=== PATIENT | female | born 1975 | race Two or more races ===

== ENCOUNTER 2020-02-23 01:09 | Emergency (ER) | payer MEDICAID ==
[~2020-02-23] VITALS: Ht 157.5 cm; Wt 67.8 kg
[2020-02-23 01:15] VITALS: BP 177/109
[2020-02-23] MEDS ORDERED: AZIT250T PO (01:40)
[2020-02-23] MEDS ORDERED: TRAM-48 PO (01:40)
--- NOTE | 2020-02-23 01:40 | PHYS DOC ---
Past Medical History Past Medical History: No Pertinent History Past Surgical History: Smoking Status: Current Every Day Smoker Alcohol Use: Rarely Social History Narrative: PT STATES, "I'M 9 MONTHS SOBER" General Adult EDM: Chief Complaint: HEADACHE HPI: HPI: Patient is a 45 year old female presents with a chief complaint of occipital frontal headache associated with congestion bilateral earache. Patient states symptoms been ongoing for the last 3 days on and off. Patient states for her pain she takes Tylenol with improvement but it returns later on. Patient denies any fever or chills chest pain shortness of breath or cough. Review of Systems: Review of Systems: Constitutional: Denies fever or chills. [] Eyes: Denies change in visual acuity. [] HENT: Positive nasal congestion or sore throat. [Positive earache] Respiratory: Denies cough or shortness of breath. [] Cardiovascular: Denies chest pain or edema. [] GI: Denies abdominal pain, nausea, vomiting, bloody stools or diarrhea. [] : Denies dysuria. [] Musculoskeletal: Denies back pain or joint pain. [] Integument: Denies rash. [] Neurologic: Denies headache, focal weakness or sensory changes. [] Endocrine: Denies polyuria or polydipsia. [] Lymphatic: Denies swollen glands. [] Psychiatric: Denies depression or anxiety. [] Heart Score: Risk Factors: Risk Factors: DM, Current or recent (<one month) smoker, HTN, HLP, family history of CAD, obesity. Risk Scores: Score 0 - 3: 2.5% MACE over next 6 weeks - Discharge Home Score 4 - 6: 20.3% MACE over next 6 weeks - Admit for Clinical Observation Score 7 - 10: 72.7% MACE over next 6 weeks - Early Invasive Strategies Allergies: Allergies: Allergies Coded Allergies Type Severity Reaction Last Updated Verified No Known Drug Allergies 02/23/20 No Physical Exam: PE: Constitutional: Well developed, well nourished, no acute distress, non-toxic appearance. [] HENT: Normocephalic, atraumatic, bilateral external ears normal, oropharynx moist, no oral exudates, nose normal. [Pharyngeal erythema postnasal drip TM fullness bilateral] Eyes: PERRLA, EOMI, conjunctiva normal, no discharge. [] Neck: Normal range of motion, no tenderness, supple, no stridor. [] Cardiovascular:Heart rate regular rhythm, no murmur [] Lungs & Thorax: Bilateral breath sounds clear to auscultation [] Abdomen: Bowel sounds normal, soft, no tenderness, no masses, no pulsatile masses. [] Skin: Warm, dry, no erythema, no rash. [] Back: No tenderness, no CVA tenderness. [] Extremities: No tenderness, no cyanosis, no clubbing, ROM intact, no edema. [] Neurologic: Alert and oriented X 3, normal motor function, normal sensory function, no focal deficits noted. [] Psychologic: Affect normal, judgement normal, mood normal. [] Current Patient Data: Vital Signs: Vital Signs Date Time Temp Pulse Resp B/P (MAP) Pulse Ox O2 Delivery O2 Flow Rate FiO2 02/23/20 01:15 98.3 77 16 177/109 (131) 99 Room Air 98.3 EKG: EKG: [] Radiology/Procedures: Radiology/Procedures: [] Course & Med Decision Making: Course & Med Decision Making Pertinent Labs and Imaging studies reviewed. (See chart for details) [] Dragon Disclaimer: [employer] Disclaimer: This electronic medical record was generated, in whole or in part, using a voice recognition dictation system. Departure Departure Impression: Primary Impression: Sinusitis Additional Impression: Otalgia Disposition: 01 DC HOME SELF CARE/HOMELESS Condition: STABLE Referrals: ADRIEL NETTLES MD (PCP) Patient Instructions: Otalgia, Sinus Headache Scripts Tramadol Hcl (ULTRAM) 50 Mg Tablet 50 MG PO Q4HRS PRN for PAIN for 7 Days, #14 TAB 0 Refills Prov: MELVA DAWN I DO 02/23/20 Azithromycin (ZITHROMAX) 250 Mg Tablet 1 PKG PO UD, #6 TAB Prov: MELVA DAWN I DO 02/23/20 MELVA DAWN DO Feb 23, 2020 01:40
== END 2020-02-23 01:45 | disposition home or self-care (01) ==
LOC: ER 01:09
DX: J32.9 Chronic sinusitis, unspecified (principal); H92.03 Otalgia, bilateral; R09.81 Nasal congestion; R51.9 Headache, unspecified; F17.200 Nicotine dependence, unspecified, uncomplicated; Z98.890 Other specified postprocedural states
CPT/HCPCS: 99283

== ENCOUNTER 2020-09-13 19:50 | Emergency (ER) | payer MEDICAID ==
[~2020-09-13] VITALS: Ht 157.5 cm; Wt 68.2 kg
[~2020-09-13 19:50] MED LIST: AZIT250T PO; TRAM-48 PO
[2020-09-13 20:07] VITALS: BP 141/83
[2020-09-13] MEDS ORDERED: CLIN150C15 PO (21:03)
[2020-09-13] MEDS ORDERED: CHLO15MO2 SWSP (21:03)
[2020-09-13] MEDS ORDERED: NAPR-514 PO (21:03)
--- NOTE | 2020-09-13 21:04 | ED.ADGEN ---
Past Medical History Past Medical History: No Pertinent History Past Surgical History: No Surgical History Smoking Status: Current Every Day Smoker Alcohol Use: None General Adult EDM: Chief Complaint: DENTAL PROBLEM HPI: HPI: Patient is a 45 year old female who presents emergency department with complaints of front lower tooth pain since last night. Patient reports a history of dental caries. She states she has an appointment with a dentist next week. She denies any fever, cough, body aches, fatigue, nausea, vomiting, diarrhea, neck pain, difficulty swallowing, or ear pain. She currently rates her pain 10 out of 10 on the pain scale, she denies any alleviating factors, pain is worse with palpation of the area. She denies any pus drainage from the teeth. Review of Systems: Review of Systems: Complete ROS is negative unless otherwise noted in HPI. Allergies: Allergies: Allergies Coded Allergies Type Severity Reaction Last Updated Verified No Known Drug Allergies 02/23/20 No Physical Exam: PE: See Above Constitutional: Well developed, well nourished, no acute distress, non-toxic appearance. [] HENT: Normocephalic, atraumatic, bilateral external ears normal, nose normal; diffuse dental decay with gingival edema and erythema, no visible or palpable dental abscess, multiple broken teeth in the front lower jaw, no trismus [] Eyes: PERRLA, EOMI, conjunctiva normal, no discharge. [] Neck: Normal range of motion, no stridor. [] Cardiovascular:Heart rate regular rhythm Lungs & Thorax: Respirations even and unlabored, no retractions, no respiratory distress Skin: Warm, dry, no erythema, no rash. [] Extremities: No cyanosis, ROM intact, no edema. [] Neurologic: Alert and oriented X 3, no focal deficits noted. [] Psychologic: Affect normal, judgement normal, mood normal. [] Current Patient Data: Vital Signs: Vital Signs Date Time Temp Pulse Resp B/P (MAP) Pulse Ox O2 Delivery O2 Flow Rate FiO2 09/13/20 20:07 98.0 70 16 141/83 (102) 97 Room Air 98.0 EKG: EKG: [] Heart Score: C/O Chest Pain: No Risk Scores: Score 0 - 3: 2.5% MACE over next 6 weeks - Discharge Home Score 4 - 6: 20.3% MACE over next 6 weeks - Admit for Clinical Observation Score 7 - 10: 72.7% MACE over next 6 weeks - Early Invasive Strategies Radiology/Procedures: Radiology/Procedures: [] Course & Med Decision Making: Course & Med Decision Making Pertinent Labs and Imaging studies reviewed. (See chart for details) []Did no personally evaluate the patient. Treatment and care plan was independently made by DANIEL. I was available for consult. Luis Disclaimer: Luis Disclaimer: This electronic medical record was generated, in whole or in part, using a voice recognition dictation system. Departure Departure Impression: Primary Impression: Pain, dental Additional Impressions: Infected dental caries Gingivitis Disposition: HOME / SELF CARE / HOMELESS Condition: STABLE Referrals: ADRIEL NETTLES MD (PCP) Patient Instructions: Dental Caries, Gingivitis, [id number] Additional Instructions: Fill prescription(s) and use as directed. Follow-up with your dentist next week as planned, return to the ER if symptoms worsen or fever develops.. Scripts Chlorhexidine Gluconate (PERIDEX) 15 Ml Mouthwash 15 ML SWSP BID for 10 Days, #1 BOT 0 Refills [place] your teeth before use of this medication and rinse thoroughly after using the medication as it may stain your teeth. Prov: GUS MOSLEY PROCUREMENT MANAGER 09/13/20 Naproxen (NAPROXEN) 500 Mg Tablet 1 TAB PO BID PRN for PAIN for 10 Days, #20 TAB 0 Refills Prov: GUS MOSLEY APRN 09/13/20 Clindamycin Hcl (CLINDAMYCIN HCL) 150 Mg Capsule 450 MG PO TID for 7 Days, #63 CAP 0 Refills Prov: GUS MOSLEY APRN 09/13/20 Problem Qualifiers GUS MOSLEY APRN September 13, 2020 21:03 MELVA DAWN I DO September 15, 2020 18:12
== END 2020-09-13 21:25 | disposition home or self-care (01) ==
LOC: ER 19:50
DX: K02.9 Dental caries, unspecified (principal); K05.10 Chronic gingivitis, plaque induced; F17.200 Nicotine dependence, unspecified, uncomplicated
CPT/HCPCS: 99283

== ENCOUNTER 2021-09-03 16:17 | Emergency (ER) | payer MEDICAID ==
[~2021-09-03] VITALS: Ht 157.5 cm; Wt 67.8 kg
[~2021-09-03 16:17] MED LIST changes: +CHLO15MO2 SWSP; +CLIN150C16 PO; +NAPR-514 PO
[2021-09-03 16:20] VITALS: BP 160/81
[2021-09-03 18:10] LABS: BACTERIA,URINE FEW /HPF (0-FEW); WBC,URINE 0 /HPF (0-4)
[2021-09-03] MEDS ORDERED: ACYC-12 PO (20:40)
[2021-09-03] MEDS ORDERED: DOXY100C3 PO (20:40)
--- NOTE | 2021-09-03 20:40 | PHYS DOC ---
Past Medical History Past Medical History: No Pertinent History Past Surgical History: No Surgical History Smoking Status: Current Every Day Smoker Alcohol Use: None General Adult EDM: Chief Complaint: SEXUALLY TRANSMITTED DISEASE HPI: HPI: Patient is a [age]-year-old female presents to the emergency department complaining of painful vaginal sores for the past 2 days. Patient reports that her was released from senior care 2 weeks ago and she has noticed he had similar sores on his penis. Patient reports a malodorous vaginal discharge with burning on urination. Patient denies abdominal pain or discomfort. Patient denies pelvic pain or discomfort. Patient denies vaginal bleeding. Patient denies seeing blood in her urine or in her stool. Patient denies nausea vomiting or diarrhea. Patient reports having monogamous unprotected sex with her only. Patient denies rashes or lesions to other part of her body. Patient denies oral lesions. Patient denies other physical complaints or physical concerns. Review of Systems: Review of Systems: 14 body systems of review of systems have been reviewed. See HPI for pertinent positives and negative responses, otherwise all other systems are negative, nonpertinent or noncontributory. Constitutional: Negative except as outlined in HPI above. Skin: Negative except as outlined in HPI above. Eyes: Negative except as outlined in HPI above. HENT: Negative except as outlined in HPI above. Respiratory: Negative except as outlined in HPI above. Cardiovascular: Negative except as outlined in HPI above. GI: Negative except as outlined in HPI above. : Negative except as outlined in HPI above. Musculoskeletal: Negative except as outlined in HPI above. Integument: Negative except as outlined in HPI above. Neurologic: Negative except as outlined in HPI above. Endocrine: Negative except as outlined in HPI above. Lymphatic: Negative except as outlined in HPI above. Psychiatric: Negative except as outlined in HPI above. Heart Score: C/O Chest Pain: No Risk Factors: Risk Factors: DM, Current or recent (<one month) smoker, HTN, HLP, family history of CAD, obesity. Risk Scores: Score 0 - 3: 2.5% MACE over next 6 weeks - Discharge Home Score 4 - 6: 20.3% MACE over next 6 weeks - Admit for Clinical Observation Score 7 - 10: 72.7% MACE over next 6 weeks - Early Invasive Strategies Allergies: Allergies: Allergies Coded Allergies Type Severity Reaction Last Updated Verified No Known Drug Allergies 02/23/20 No Physical Exam: PE: Constitutional: Well developed, well nourished, no acute distress, non-toxic appearance. 46-year-old female in no apparent distress. HENT: Normocephalic, atraumatic. Eyes: Conjunctiva normal, no discharge. Neck: Normal range of motion. Cardiovascular: Distal cap refill less than 2 seconds, no cyanosis appreciated. Lungs & Thorax: Patient is in no respiratory distress, no adventitious lung sounds appreciated. Abdomen: Bowel sounds normal, soft, no tenderness, no masses, no pulsatile masses. No bruising or skin discoloration of the abdomen. Skin: Warm, dry, no erythema, no rash. Back: No tenderness, no CVA tenderness. Extremities: No tenderness, no cyanosis, no clubbing, ROM intact, no edema. Neurologic: Alert and oriented X 3, normal motor function, normal sensory function, no focal deficits noted. Psychologic: Affect normal, judgement normal, mood normal. 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 A viral culture was obtained and sent to the lab. There is no external vaginal discharge appreciated, speculum exam revealed pink vaginal vault and cervix with scant whitish discharge, wet prep, GC chlamydia cultures were obtained and sent to lab, no cervical motion tenderness appreciated for bimanual exam. Patient tolerated well. Current Patient Data: Labs: Current Medications Medications (Trade) Dose Ordered Sig/Ugo Route PRN Reason Start Time Stop Time Status Last Admin Dose Admin Ceftriaxone Sodium (Rocephin Im) 500 mg 1X ONCE IM 09/03/21 20:45 09/03/21 20:54 DC 09/03/21 21:07 Doxycycline Hyclate (Vibra-Tab) 100 mg 1X ONCE PO 09/03/21 20:45 09/03/21 20:54 DC 09/03/21 21:07 Acyclovir (Zovirax) 400 mg 1X ONCE PO 09/03/21 22:00 09/03/21 22:01 Cancel Acyclovir (Zovirax) 400 mg ONCE ONCE PO 09/03/21 21:00 09/03/21 21:01 DC 09/03/21 21:11 Laboratory Tests Test 09/03/21 16:36 09/03/21 16:46 Urine Collection Type Unknown Urine Color (Auto) Light yellow Urine Turbidity Clear Urine pH (Auto) 6.0 (<5.0-8.0) Urine Specific [place] 1.016 (1.000-1.030) Urine Protein (Auto) Negative mg/dL (Negative) Urine Glucose (Auto)(UA) Negative mg/dL (Negative) Urine Ketones (Auto) Negative mg/dL (Negative) Urine Blood (Auto) Trace (Negative) Urine Nitrite Negative (Negative) Urine Bilirubin (Auto) Negative (Negative) Urine Urobilinogen (Auto) 2 mg/dL (Normal) Urine Leukocyte Esterase (Auto) Negative (Negative) Urine RBC 3-5 /HPF (0-2) Urine WBC 0 /HPF (0-4) Urine Squamous Epithelial Cells Few /LPF Urine Bacteria Few /HPF (0-FEW) Urine Mucus Marked /LPF POC Urine HCG, Qualitative Hcg negative (Negative) Microbiology 09/03/21 Wet Prep - Final, Complete Vital Signs: Vital Signs Date Time Temp Pulse Resp B/P (MAP) Pulse Ox O2 Delivery O2 Flow Rate FiO2 09/03/21 16:20 98.3 94 16 160/81 (107) 97 Room Air 98.3 EKG: EKG: [] Radiology/Procedures: Radiology/Procedures: [] Course & Med Decision Making: Course & Med Decision Making Pertinent Labs and Imaging studies reviewed. (See chart for details) 46-year-old female, vital signs reviewed, presents to the emergency department concerning painful vaginal lesions for the past 2 days. Patient's physical examination/pelvic exam concerning for vaginal herpes, viral culture sent to lab, wet prep sent to lab, GC/chlamydia culture sent to lab. Wet prep negative, suspicious for vaginal herpes will initiate acyclovir regimen, physical/physical examination of vaginal discharge low likelihood of GC/chlamydia, however after discussion with patient, patient's suspicious of high risk sexual behaviors, will prophylactically treat with 500 mg IM Rocephin, doxycycline p.o. regimen 100 mg twice daily x7 days. Patient is amendable to ED planning. Discussed with patient physical examination concerning for vaginal herpes, labs pending at time of discharge, discussed with patient acyclovir regimen, Rocephin, doxycycline regimen and side effects, safe sex practices, condom barrier sex, follow-up with primary care soon, return to ER precautions and concerns were reviewed. Patient gave verbal understanding of and is amenable to ED discharge planning. Discussed with the patient all findings and diagnostic testing as well as the need to follow-up with their primary care provider for further evaluation and treatment or return to the ED if any new or worsening symptoms. Strict return precautions were also discussed at length, the patient voiced understanding and agreement with the discharge planning. The patient was nontoxic in appearance, in no apparent distress, and hemodynamically stable at the time of disposition. Dragon Disclaimer: [employer] Disclaimer: This electronic medical record was generated, in whole or in part, using a voice recognition dictation system. Departure Departure Impression: Primary Impression: Vaginal lesion Additional Impression: STI (sexually transmitted infection) Disposition: HOME / SELF CARE / HOMELESS Condition: GOOD Referrals: ADRIEL NETTLES MD (PCP) Patient Instructions: Herpes Labialis, Sexually Transmitted Disease Additional Instructions: You were seen today in the emergency department for concerns of sexually transmitted diseases. Your vaginal cultures did not show any concerning signs of vaginosis, trichomonas, you do not have a urinary tract infection, you are not . However related to your concerns with unprotected sex and vaginal lesions, I am treating you today for gonorrhea and chlamydia, you have received your first dose of Rocephin intramuscular injection, I am sending your ongoing medications to the pharmacy, you will take doxycycline twice a day for the next 7 days. You also have vaginal lesions that are concerning for herpes vaginalis, as we discussed I am starting you on a antiviral, you will take acyclovir 400 mg 3 times a day for the next 10 days. Please take all medications until completed. I have attached a list of area healthcare providers for you to establish primary care with, please call tomorrow for an appointment for ongoing healthcare needs. Please consider using condom barrier protection sex for ongoing sexual intercourse to help reduce the spread of sexually transmitted diseases. Thank you for visiting our Emergency Department. It was a pleasure taking care of you today in the emergency department and we appreciate you trusting us with your care. If any additional problems come up don't hesitate to return to visit us. Please follow up with your primary care provider so they can plan additional care if needed and know about the problem that you had. If symptoms worsen come back to the Emergency Department. Any concerning symptoms that start such as chest pain, shortness of air, weakness or numbness on one quin e of the body, running high fevers or any other concerning symptoms return to the ER. Scripts Acyclovir (ACYCLOVIR) 400 Mg Tablet 1 TAB PO TID for HERPES, #30 TAB 0 Refills Prov: TUCKER SCOTT APRN 09/03/21 Doxycycline Hyclate (DOXYCYCLINE HYCLATE) 100 Mg Capsule 1 CAP PO BID for STI, #14 CAP 0 Refills Prov: TUCKER SCOTT APRN 09/03/21 TUCKER SCOTT APRN September 03, 2021 20:40
[2021-09-03] MEDS ORDERED: cefTRIAXone IM 500 MG VIAL. IM ONE (20:45)
[2021-09-03] MEDS ORDERED: DOXYCYCLINE HYCLATE 100 MG TABLET PO ONE (20:45)
[2021-09-03] MEDS ORDERED: ACYCLOVIR 200 MG CAPSULE. PO ONE ×2 (21:00→22:00)
[2021-09-05 18:26] LABS: GC PROBE Negative (Negative)
[2021-09-09 08:18] LABS: HERPES SIMPLEX TYPE 1 Negative (Negative); HERPES SIMPLEX TYPE 2 Positive (Negative)
== END 2021-09-03 21:16 | disposition home or self-care (01) ==
LOC: ER 16:17
DX: A64 Unspecified sexually transmitted disease (principal); N89.8 Other specified noninflammatory disorders of vagina; F17.200 Nicotine dependence, unspecified, uncomplicated
CPT/HCPCS: 36415; 81001; 81025; 87491; 87529; 87591; 96372; 99283; J0696; Q0111